=== PATIENT | female | born 1995 | race Caucasian/White ===

== ENCOUNTER 2020-07-27 07:05 | Emergency (ER) | payer MEDICAID ==
[~2020-07-27] VITALS: Ht 172.7 cm; Wt 77.1 kg
[~2020-07-27 07:05] MED LIST: IBUPROFEN400 MG PO
== END 2020-07-27 09:51 | disposition home or self-care (01) ==
LOC: ED 07:05
DX: R10.31 Right lower quadrant pain (principal); R10.11 Right upper quadrant pain; R10.12 Left upper quadrant pain; R10.32 Left lower quadrant pain; G89.29 Other chronic pain
CPT/HCPCS: 76830; 76856; 81001; 84703; 96372; 99284-25; J1885